=== PATIENT | male | born 1995 | race Caucasian/White ===

== ENCOUNTER → 2019-10-25 | Outpatient (CLI) | payer BC ==
--- NOTE | 2019-10-26 11:48 | XR ---
Left wrist HISTORY: Left wrist pain, strain 3 views of the left wrist Bone mineralization, joint spaces and alignment are maintained. There is a foreshortened fifth metaca rpal which is nonspecific. IMPRESSION: No fracture or dislocation.
== END | disposition home or self-care (01) ==
LOC: RADXRYALE 15:35
PROVIDERS: ATTEND Physician Assistant Medical
DX: M25.532 Pain in left wrist (principal)